=== PATIENT | female | born 1975 | race Caucasian/White ===

== ENCOUNTER 2017-12-03 09:28 | Emergency (ER) | payer OTHER, SELFPAY ==
[2017-12-03 09:33] VITALS: BP 127/95; PULSE 82; RESP 18; TEMP 36.7; O2SAT 97; BMI 30.9
--- NOTE | 2017-12-03 09:53 | XR_ITS ---
XR knee RT 3V Ordering Physician: Valerie Garduno MD Patient Age: 42 years: Female HISTORY: ITS.REASON: FELL AND HIT KNEE right knee pain. Injury TECHNIQUE: 3 views right knee COMPARISON : None available FINDINGS No fracture nor dislocation. Osseous structures well mineralized and intact.. Upper normal fluid suprapatella bursa pain. Patellofemoral relationships appear normal.. The joint spaces well-maintained at medial and lateral compartment. Only question minor , soft tissue edema overlying patella & the patellar tendon. Correlation required IMPRESSION: . No fracture. Right knee intact.
--- NOTE | 2017-12-03 10:03 | HMH.EDGENADL ---
ED Disposition Clinical Impression: Upper respiratory infection Qualifiers: URI type: unspecified URI Qualified Code(s): J06.9 - Acute upper respiratory infection, unspecified Knee pain, right Qualifiers: Chronicity: acute Qualified Code(s): M25.561 - Pain in right knee Disposition: Home, Self-Care Condition on Discharge: Good Instructions: Common Cold Additional Instructions: Aleve over the counter as needed for knee pain, see Betsy next week for follow up; recommend [id number] sterile saline nasal spray as needed. Referrals: Feroz Beckwith MD [Primary Care Provider] - Time of Disposition: :23 - Critical Care Critical Care Time: No Attestation: On , the high probability of a clinically significant, sudden or life threatening deterioration of the following system(s) required my full and direct attention, intervention and personal management. The time I documented below is in addition to time spent performing reported procedures but includes the following listed in this critical care notation. Medical Decision Making - Medical Records Medical records reviewed: Yes: I reviewed the patient's medical records. Vital Signs: 12/03/17 09:33 Temperature 98.0 F Temperature Source Oral Pulse Rate [Apical] 82 Respiratory Rate 18 Blood Pressure [Right Arm] 127/95 Blood Pressure Mean [Right Arm] 105 Blood Pressure Source [Right Arm] Automatic Cuff Blood Pressure Position [Right Arm] Sitting 02 Sat by Pulse Oximetry 97 Oxygen Delivery Method Room Air Orders (Tests/Meds): ORDERS Category Date Time Status Knee XR right 3 views [XR knee RT 3V] Stat Exams 12/03/17 09:53 Ordered - Radiology Data #1 Image(s): Knee Image Reviewed: Yes I reviewed the patient's radiology image Preliminary Findings: Normal/NAD, No Fracture Seen (neg acute) - Marc Inquiry Pt receiving controlled substance: No General Adult HPI - General Chief complaint: Upper Respiratory Infection Stated complaint: AO [id number] R Knee Pain,sinus Time Seen by Provider: 12/03/17 09:55 Mode of Arrival: Ambulatory Limitations: No Limitations Description of Symptoms (Recalled from ER Triage Doc. by RN): PT C/O HEAD CONGESTION,COUGH,SNEEZING,HEAD ACHE, DIZZINESS. PT ALSO STATES SHE FELL A COUPLE WEEKS AGO AND HIT HER RIGHT KNEE. - History of Present Illness HPI narrative: Patient presents with 2 complaints. She states that she fell on her porch on November 14, 2017 with negative LOC. She had pain in the right knee since that time. She has not received any prior evaluations from a physician. He has no numbness or swelling. Last took ibuprofen last night for this problem. Her second problem is that she has been congested for 2 days with no fever. She has been taking Claritin [id number] for 2 days. He has a very mild cough, and is a chronic smoker with chronic cough no vomiting or diarrhea. No flu symptoms. - Related Data Home Medications Medication Instructions Recorded Confirmed No Known Home Medications [No 12/03/17 12/03/17 Known Home Medications] Allergies Allergy/AdvReac Type Severity Reaction Status Date / Time No Known Allergies Allergy Verified 12/03/17 09:44 [facility] History I have reviewed the patient's past medical history: Yes - *Social History Smoking Status: Current every day smoker Tobacco Type: cigarettes Alcohol Intake: never - Psychiatric History Expresses thoughts of harming self/others: None Suicide Plan Description: No Plan ROS Obtained: Yes All systems reviewed & no additional complaints Physical Exam - General General appearance: alert, in no apparent distress - Head Head exam: atraumatic, normocephalic, normal inspection - Eye Eye exam: Present: normal appearance, PERRL, EOMI - ENT ENT exam: Present: normal oropharynx, mucous membranes moist, TM's normal bilaterally, normal external ear exam, other (Very mild sinus congestion with very mild sinus
--- NOTE | 2017-12-03 10:13 | ED_ITS ---
ED Disposition Clinical Impression: Upper respiratory infection Qualifiers: URI type: unspecified URI Qualified Code(s): J06.9 - Acute upper respiratory infection, unspecified Knee pain, right Qualifiers: Chronicity: acute Qualified Code(s): M25.561 - Pain in right knee Disposition: Home, Self-Care Condition on Discharge: Good Instructions: Common Cold Additional Instructions: Aleve over the counter as needed for knee pain, see Betsy next week for follow up; recommend [id number] sterile saline nasal spray as needed. Referrals: Feroz Beckwith MD [Primary Care Provider] - Time of Disposition: :23 - Critical Care Critical Care Time: No Attestation: On , the high probability of a clinically significant, sudden or life threatening deterioration of the following system(s) required my full and direct attention, intervention and personal management. The time I documented below is in addition to time spent performing reported procedures but includes the following listed in this critical care notation. Medical Decision Making - Medical Records Medical records reviewed: Yes: I reviewed the patient's medical records. Vital Signs: 12/03/17 09:33 Temperature 98.0 F Temperature Source Oral Pulse Rate [Apical] 82 Respiratory Rate 18 Blood Pressure [Right Arm] 127/95 Blood Pressure Mean [Right Arm] 105 Blood Pressure Source [Right Arm] Automatic Cuff Blood Pressure Position [Right Arm] Sitting 02 Sat by Pulse Oximetry 97 Oxygen Delivery Method Room Air Orders (Tests/Meds): ORDERS Category Date Time Status Knee XR right 3 views [XR knee RT 3V] Stat Exams 12/03/17 09:53 Ordered - Radiology Data #1 Image(s): Knee Image Reviewed: Yes I reviewed the patient's radiology image Preliminary Findings: Normal/NAD, No Fracture Seen (neg acute) - Marc Inquiry Pt receiving controlled substance: No General Adult HPI - General Chief complaint: Upper Respiratory Infection Stated complaint: AO [id number] R Knee Pain,sinus Time Seen by Provider: 12/03/17 09:55 Mode of Arrival: Ambulatory Limitations: No Limitations Description of Symptoms (Recalled from ER Triage Doc. by RN): PT C/O HEAD CONGESTION,COUGH,SNEEZING,HEAD ACHE, DIZZINESS. PT ALSO STATES SHE FELL A COUPLE WEEKS AGO AND HIT HER RIGHT KNEE. - History of Present Illness HPI narrative: Patient presents with 2 complaints. She states that she fell on her porch on November 14, 2017 with negative LOC. She had pain in the right knee since that time. She has not received any prior evaluations from a physician. He has no numbness or swelling. Last took ibuprofen last night for this problem. Her second problem is that she has been congested for 2 days with no fever. She has been taking Claritin [id number] for 2 days. He has a very mild cough , and is a chronic smoker with chronic cough no vomiting or diarrhea. No flu symptoms. - Related Data Home Medications Medication Instructions Recorded Confirmed No Known Home Medications [No 12/03/17 12/03/17 Known Home Medications] Allergies Allergy/AdvReac Type Severity Reaction Status Date / Time No Known Allergies Allergy Verified 12/03/17 09:44 [facility] History I have reviewed the patient's past medical history: Yes - *Social History Smoking Status: Cu
[2017-12-03 10:29] VITALS: BP 127/95; PULSE 80; RESP 18; O2SAT 97
== END 2017-12-03 10:34 | disposition home or self-care (01) ==
PROVIDERS: Emergency Provider Emergency Medicine; PCP Emergency Medicine
DX: J06.9 Acute upper respiratory infection, unspecified (principal); M25.561 Pain in right knee; R05 Cough; R42 Dizziness and giddiness; W01.0XXA Fall on same level from slipping, tripping and stumbling without subsequent striking against object, initial encounter; Y92.019 Unspecified place in single-family (private) house as the place of occurrence of the external cause
CPT/HCPCS: 73562; 99283

== ENCOUNTER → 2018-02-05 15:24 | Outpatient (CLI) | payer OTHER, SELFPAY ==
[2018-02-05 18:24] LABS: Basophils # 0.1 K/mm3 (0-0.2); Basophils % 1.1 % (0.1-2.0); Eosinophils # 0.2 K/mm3 (0.0-0.4); Eosinophils % 3.1 % (0.1-12.0); Hematocrit 45.8 % (37.0-47.0); Hemoglobin 14.7 g/dL (12.2-16.2); Lymphocytes # 2.9 K/mm3 (0.7-4.5); Lymphocytes % 43.2 K/mm3 (10-50); Mean Corpuscular HGB Conc 32.2 g/dL (31.8-35.4); Mean Corpuscular Hemoglobin 29.9 pg (27.0-31.2); Mean Corpuscular Volume 92.9 fl (81-99); Mean Platelet Volume 8.5 fl (7.4-10.4); Monocytes # 0.3 K/mm3 (0.1-1.0); Neutrophils # 3.2 K/mm3 (1.8-7.8); Neutrophils % 47.6 % (37.0-80.0); Platelet Count 321 K/mm3 (142-424); Red Blood Count 4.93 M/mm3 (4.20-5.40); Red Cell Distribution Width 13.4 % (11.5-17.5); White Blood Count 6.7 K/mm3 (4.8-10.8)
[2018-02-05 19:53] LABS: Hemoglobin A1C 5.5 % (0.0-7.0)
[2018-02-05 20:15] LABS: Alanine Aminotransferase 63 U/L (12-78); Albumin Level 3.9 gm/dL (3.4-5.0); Alkaline Phosphatase 94 U/L (46-116); Amylase 55 U/L (25-125); Anion Gap 12.4 mEq/L (5-15); Aspartate Amino Transferase 34 U/L (15-37); Bilirubin,Total 0.2 mg/dL (0.2-1.0); Blood Urea Nitrogen 8 mg/dL (7-18); Calcium 8.6 mg/dL (8.5-10.1); Carbon Dioxide 28 mmol/L (21.0-32.0); Chloride 106 mmol/L (98-107); Cholesterol 179 mg/dL (140-200); Estimated Glomerular Filt Rate 109 ml/min (>60); Free T4 (Free Thyroxine) 1.07 ng/dl (0.76-1.46); GFR (African American) 132 ML/MIN (>60); Globulin 3.9 gm/dl (1.3-3.2); Glucose 87 mg/dL (74-106); HDL Cholesterol 36 mg/dL (29-89); LDL Cholesterol 108 mg/dL (0-130); Potassium 4.4 mmoL/L (3.5-5.1); Sodium 142 mmol/L (136-145); Thyroid Stimulating Hormone 1.79 uIU/ml (0.358-3.740); Total Protein,Serum 7.8 gm/dL (6.4-8.2); Triglycerides 173 mg/dL (30-200); VLDL Cholesterol 35 mg/dL (0-40)
[2018-02-05 22:56] LABS: Lipase 88 u/L (73-393)
[2018-02-07 09:24] LABS: Hep A Ab, IgM Negative (Negative); Hepatitis B Core Antibody IgM Negative (Negative); Hepatitis B Surface Antigen Negative (Negative)
[2018-02-07 18:27] LABS: FSH 22.7 mIU/mL (.); Vitamin D 25 Hydroxy 22.5 ng/mL (30.0-100.0)
[2018-02-07 18:28] LABS: Hepatitis C Antibody >11.0 s/co ratio (0.0-0.9)
[2018-02-10 06:23] LABS: Estrogen 290 pg/mL (.)
== END ==
PROVIDERS: Visit Provider Nurse Practitioner Family
DX: R53.83 Other fatigue (principal); R74.8 Abnormal levels of other serum enzymes
CPT/HCPCS: 80053; 80061; 80074; 82150; 82652; 82672; 83001; 83002; 83036; 83690; 84439; 84443; 85025

== ENCOUNTER 2019-05-07 01:17 | Emergency (ER) | payer MEDICAID, SELFPAY ==
[2019-05-07 01:21] VITALS: BP 160/87; PULSE 98; RESP 15; TEMP 37.2; O2SAT 98
--- NOTE | 2019-05-07 01:41 | HMH.EDMCLR ---
ED Disposition Clinical Impression: Medical clearance for incarceration Disposition: Home, Self-Care Condition on Discharge: Fair Instructions: DI for Drug or Alcohol Withdrawal Additional Instructions: see pcp for follow up Referrals: Feroz Beckwith MD [Primary Care Provider] - - Critical Care Critical Care Time: No Attestation: On 05/07/19, the high probability of a clinically significant, sudden or life threatening deterioration of the following system(s) required my full and direct attention, intervention and personal management. The time I documented below is in addition to time spent performing reported procedures but includes the following listed in this critical care notation. Medical Decision Making - Medical Records Medical records reviewed: Yes: I reviewed the patient's medical records. - Marc Inquiry Pt receiving controlled substance: No Vital Signs: 05/07/19 01:21 Temperature 98.9 F Temperature Source Oral Pulse Rate [Right Brachial] 98 H Respiratory Rate 15 Blood Pressure [Right Arm] 160/87 H Blood Pressure Mean [Right Arm] 111 02 Sat by Pulse Oximetry 98 Oxygen Delivery Method Room Air Medical Clearance HPI - General Chief complaint: Medical Clearance Stated complaint: Medical Clearance Time Seen by Provider: 05/07/19 01:20 Mode of Arrival: Ambulatory Source of Information: Patient, Medical Record Description of Symptoms (Recalled from ER Triage Doc. by RN): PT BROUGHT IN FOR MEDICAL CLEARANCE BY [employer]PERATOR'S OFFICE. REPORTS SHE HAS TAKEN METH AND HEROIN TODAY AT SOME POINT. PT PARANOID RIGHT NOW. HAS NO COMPLAINTS AT THIS TIME - History of Present Illness HPI Narrative: pt denied any c/o - no delusions and ox3 - upset about things complaint: medical clearance requested Onset (ago): hour(s) Reason for Medical Clearance: medical condition Place: home Alleged Intoxication: No Traumatic Symptoms: denies traumatic injury Associated Symptoms: denies other symptoms Home medications: Home Medications Medication Instructions Recorded Confirmed buPROPion HCl [Wellbutrin SR 150mg 300 mg PO DAILY 05/07/19 05/07/19 Tablet] Allergies/Adverse reactions: Allergies Allergy/AdvReac Type Severity Reaction Status Date / Time No Known Allergies Allergy Verified 05/07/19 01:30 [facility] History - Hepatitis A Screen Drug use history?: Yes High risk sexual behaviors?: No History of sexually transmitted infection?: No Currently employed?: No Childcare worker?: No Do you have indoor plumbing?: No Do you have electricity?: Yes Attestation statement:: This patient has been screened for Hepatitis A risk factors. I have reviewed the patient's past medical history: Yes Medical History: Reports:: Anxiety, Depression Other Medical History: Reports: Other Comment: HYPOGLYCEMIA Other Surgeries: Yes: Other Amputation: No Fractures: No Comment: GALLBLADDER REMOVED - Social History Smoking Status: Current every day smoker Tobacco Type: cigarettes # Packs/Day (cigarettes): 1 Alcohol Intake: former Alcohol Intake Frequency:: 3 or more drinks per day Substance Use Type: heroin, IV drugs, methamphetamine Last Used Substance: unknown Occupational Status: unemployed Housing: house Household Members: family - Psychiatric History Expresses thoughts of harming self/others: None Suicide Plan Description: No Plan Pschychiatric History:: Reports:: Anxiety, Depression Family Hx:: No significant family history Comment: DAD HAD ALCOHOLISM ROS Obtained: Yes All systems reviewed & no additional complaints - Constitutional Constitutional: Denies fever(s) - Eyes Eyes: Denies change in vision - ENT Ears, Nose, Mouth, and Throat: Denies sore throat - Cardiovascular Cardiovascular: Denies chest pain - Respiratory Respiratory: No cough - Gastrointestinal Gastrointestingal: Denies: abdominal pain - Genitourinary Female Genitourinary: Denies hematuria - Musculoske
--- NOTE | 2019-05-07 01:44 | ED_ITS ---
ED Disposition Clinical Impression: Medical clearance for incarceration Disposition: Home, Self-Care Condition on Discharge: Fair Instructions: DI for Drug or Alcohol Withdrawal Additional Instructions: see pcp for follow up Referrals: Feroz Beckwith MD [Primary Care Provider] - - Critical Care Critical Care Time: No Attestation: On 05/07/19, the high probability of a clinically significant, sudden or life threatening deterioration of the following system(s) required my full and direct attention, intervention and personal management. The time I documented below is in addition to time spent performing reported procedures but includes the following listed in this critical care notation. Medical Decision Making - Medical Records Medical records reviewed: Yes: I reviewed the patient's medical records. - Marc Inquiry Pt receiving controlled substance: No Vital Signs: 05/07/19 01:21 Temperature 98.9 F Temperature Source Oral Pulse Rate [Right Brachial] 98 H Respiratory Rate 15 Blood Pressure [Right Arm] 160/87 H Blood Pressure Mean [Right Arm] 111 02 Sat by Pulse Oximetry 98 Oxygen Delivery Method Room Air Medical Clearance HPI - General Chief complaint: Medical Clearance Stated complaint: Medical Clearance Time Seen by Provider: 05/07/19 01:20 Mode of Arrival: Ambulatory Source of Information: Patient, Medical Record Description of Symptoms (Recalled from ER Triage Doc. by RN): PT BROUGHT IN FOR MEDICAL CLEARANCE BY [employer] INSPECTOR'S OFFICE. REPORTS SHE HAS TAKEN METH AND HEROIN TODAY AT SOME POINT. PT PARANOID RIGHT NOW. HAS NO COMPLAINTS AT THIS TIME - History of Present Illness HPI Narrative: pt denied any c/o - no delusions and ox3 - upset about things complaint: medical clearance requested Onset (ago): hour(s) Reason for Medical Clearance: medical condition Place: home Alleged Intoxication: No Traumatic Symptoms: denies traumatic injury Associated Symptoms: denies other symptoms Home medications: Home Medications Medication Instructions Recorded Confirmed buPROPion HCl [Wellbutrin SR 150mg 300 mg PO DAILY 05/07/19 05/07/19 Tablet] Allergies/Adverse reactions: Allergies Allergy/AdvReac Type Severity Reaction Status Date / Time No Known Allergies Allergy Verified 05/07/19 01:[address] [facility] History - Hepatitis A Screen Drug use history?: Yes High risk sexual behaviors?: No History of sexually transmitted infection?: No Currently employed?: No Childcare worker?: No Do you have indoor plumbing?: No Do you have electricity?: Yes Attestation statement:: This patient has been screened for Hepatitis A risk factors. I have reviewed the patient's past medical history: Yes Medical History: Reports:: Anxiety, Depression Other Medical History: Reports: Other Comment: HYPOGLYCEMIA Other Surgeries: Yes: Other Amputation: No Fractures: No Comment: GALLBLADDER REMOVED - Social History Smoking Status: Current every day smoker Tobacco Type: cigarettes # Packs/Day (cigarettes): 1 Alcohol Intake: former Alcohol Intake Frequency:: 3 or more drinks per day Substance Use Type: heroin, IV drugs, methamphetamine Last Used Substance: unknown Occupational Status: unemployed Housing: house
[2019-05-07 01:47] VITALS: BP 120/88; PULSE 120; RESP 15; TEMP 36.7; O2SAT 96
== END 2019-05-07 01:48 ==
PROVIDERS: Emergency Provider Emergency Medicine; PCP Emergency Medicine
DX: F19.20 Other psychoactive substance dependence, uncomplicated (principal); F17.210 Nicotine dependence, cigarettes, uncomplicated; F41.8 Other specified anxiety disorders
CPT/HCPCS: 99282

== ENCOUNTER → 2021-04-18 14:08 | Outpatient (CLI) | payer MEDICAID, SELFPAY ==
[2021-04-18 14:27] LABS: Basophils # 0.1 K/mm3 (0-0.2); Basophils % 1.2 % (0.1-2.0); Eosinophils # 0.3 K/mm3 (0.0-0.4); Eosinophils % 3.1 % (0.1-12.0); Hematocrit 38.4 % (37.0-47.0); Hemoglobin 12.6 g/dL (12.2-16.2); Lymphocytes # 3.4 K/mm3 (0.7-4.5); Lymphocytes % 39.4 % (10-50); Mean Corpuscular HGB Conc 32.9 g/dL (31.8-35.4); Mean Corpuscular Hemoglobin 30.5 pg (27.0-31.2); Mean Corpuscular Volume 92.8 fl (81-99); Mean Platelet Volume 9.1 fl (7.4-10.4); Monocytes # 0.6 K/mm3 (0.1-1.0); Monocytes % 6.3 % (1.7-9.3); Neutrophils # 4.3 K/mm3 (1.8-7.8); Platelet Count 371 K/mm3 (142-424); Red Blood Count 4.13 M/mm3 (4.20-5.40); Red Cell Distribution Width 13.1 % (11.5-17.5); White Blood Count 8.7 K/mm3 (4.8-10.8)
[2021-04-18 14:41] LABS: Alanine Aminotransferase 14 U/L (12-78); Albumin Level 4.1 g/dl (3.5-5.0); Albumin/Globulin Ratio 1.5 (1.1-1.8); Alkaline Phosphatase 93 U/L (38-126); Anion Gap 11.3 mEq/L (5-15); Aspartate Amino Transferase 25 U/L (14-36); Bilirubin,Total 0.7 mg/dl (0.2-1.3); Blood Urea Nitrogen 10 mg/dl (7-17); Calcium 8.8 mg/dl (8.4-10.2); Carbon Dioxide 26 mmol/L (22.0-30.0); Chloride 106 mmol/L (98-107); Chol/HDL Ratio 4.8 (1-3.5); Cholesterol 195 mg/dl (140-200); Estimated Glomerular Filt Rate 108 ml/min (>60); GFR (African American) 130 ML/MIN (>60); Globulin 2.8 g/dL (1.3-3.2); Glucose 128 mg/dl (74-100); HDL Cholesterol 41 mg/dl (40-60); Potassium 4.3 mmoL/L (3.5-5.1); Sodium 139 mmol/L (136-145); Total Protein,Serum 6.9 g/dl (6.3-8.2); Triglycerides 167 mg/dl (30-150); VLDL Cholesterol 33 mg/dL (0-40)
[2021-04-18 14:52] LABS: Direct LDL Cholesterol 124.21 mg/dL (100-129)
[2021-04-18 14:58] LABS: 25-OH Vitamin D, Total 21.4 ng/mL (30-100); Free T4 (Free Thyroxine) 1.22 ng/dl (0.78-2.19)
[2021-04-18 15:11] LABS: Thyroid Stimulating Hormone 3.28 uIU/mL (0.465-4.68)
== END ==
PROVIDERS: Visit Provider Emergency Medicine
DX: E66.9 Obesity, unspecified (principal); E55.9 Vitamin D deficiency, unspecified; Z68.34 Body mass index [BMI] 34.0-34.9, adult; Z79.899 Other long term (current) drug therapy
CPT/HCPCS: 80053; 80061; 82306; 84439; 84443; 85025

== ENCOUNTER → 2021-04-26 17:35 | Outpatient (CLI) | payer MEDICAID, SELFPAY ==
--- NOTE | 2021-04-26 17:45 | XR_ITS ---
PROCEDURE INFORMATION: Exam: XR Right Wrist Exam date and time: 04/26/2021 5:45 PM Age: 46 years old Clinical indication: Wrist; Right; Patient HX: Pain, no injury. ; Additional info: Possible carpal tunnel, pain , no injury TECHNIQUE: Imaging protocol: XR Right wrist. Views: 3 or more views. Total images: 3 COMPARISON: No relevant prior studies available. FINDINGS: Bones/joints: No fractures. No blastic or lytic lesions. No gross erosive changes. Soft tissues: No periostitis or osteolysis. No gross soft tissue abnormalities. No radiopaque foreign bodies. Other findings: Carpal relationships are normal. Distal radioulnar alignment is normal. IMPRESSION: No acute findings.
--- NOTE | 2021-04-26 17:45 | XR_ITS ---
PROCEDURE INFORMATION: Exam: XR Right Hand Exam date and time: 04/26/2021 5:45 PM Age: 46 years old Clinical indication: Pain; Hand; Right; Additional info: Possible carpal tunnel TECHNIQUE: Imaging protocol: XR Right hand. Views: 3 or more views. Total images: 3 COMPARISON: No relevant prior studies available. FINDINGS: Bones/joints: Grid mildly limits bone detail. No fractures. No blastic or lytic lesions. No articular erosive changes. Soft tissues: No periostitis or osteolysis. No gross soft tissue abnormalities. No radiopaque foreign bodies. Other findings: Carpal relationships are normal. Distal radioulnar alignment is normal. IMPRESSION: No acute findings.
== END ==
PROVIDERS: PCP Nurse Practitioner Family; Visit Provider Nurse Practitioner Family
DX: M79.641 Pain in right hand (principal); M25.531 Pain in right wrist; R20.2 Paresthesia of skin
CPT/HCPCS: 73110; 73130

== ENCOUNTER → 2022-01-17 15:39 | Outpatient (CLI) | payer MEDICAID, SELFPAY ==
--- NOTE | 2022-01-17 15:47 | XR_ITS ---
FINAL REPORT CLINICAL HISTORY: PAIN OF THE LEFT SACROILIAC JOINT FINDINGS: SACROILIAC JOINTS Three views demonstrate no acute fracture or dislocation. The joint spaces appear normal. The visualized bony structures are well aligned. No soft tissue abnormality is seen. IMPRESSION: No acute process. Reviewed, Interpreted and Dictated by Mainor Gaston MD Transcribed by Margot Peterson Authenticated by Mainor Gaston MD on 01/17/2022 04:52:14 PM [facility]
== END ==
PROVIDERS: PCP Internal Medicine Adolescent Medicine; Visit Provider Nurse Practitioner Family
DX: M53.3 Sacrococcygeal disorders, not elsewhere classified (principal)
CPT/HCPCS: 72202

== ENCOUNTER 2024-01-20 14:13 | Outpatient (CLI) | payer MEDICAID, SELFPAY ==
--- NOTE | 2024-01-20 14:17 | XR_ITS ---
FINAL REPORT CLINICAL HISTORY: rt knee pain Patient states she had fluid drawn off her right knee. COMPARISON: 12/03/2017 FINDINGS: AP, lateral and oblique views of the right knee were obtained. There is no prior exam for comparison. There is no acute osseous abnormality of the right knee. There is mild degenerative joint disease. No acute soft tissue abnormality is identified. There is no joint effusion. IMPRESSION: Mild degenerative joint disease. Reviewed, Interpreted and Dictated by Cecy Meeks MD Transcribed by Margot Peterson Authenticated and [facility]
== END 2024-01-20 23:59 ==
LOC: RAD 14:14
PROVIDERS: PCP Nurse Practitioner Family; Visit Provider Orthopaedic Surgery
DX: M25.561 Pain in right knee (principal)
CPT/HCPCS: 73562

== ENCOUNTER 2024-03-07 20:00 | Emergency (ER) | payer MEDICAID, SELFPAY ==
[2024-03-07 21:00] VITALS: BP 130/79; PULSE 70; RESP 19; TEMP 36.7; O2SAT 96; BMI 42.9
--- NOTE | 2024-03-07 21:03 | ED_ITS ---
<Statement entered by Isaac Martel MD - 03/07/24 23:35> I was consulted by the KATIE, and we discussed the complexity of the problems being addressed. I approved the treatment and management plan for this patient's care in the emergency department, thus performing a substantive portion of the medical decision making. Isaac Martel MD Discharge Plan Disposition Patient Disposition: Home, Self-Care Condition: Good Prescriptions Prescriptions: New sulfamethoxazole-trimethoprim [Bactrim DS] 800-160 mg tablet 1 tab PO BID Qty: 20 0RF No Action cyclobenzaprine 10 mg tablet 10 mg PO clonidine HCl 0.1 mg tablet 0.1 mg PO ropinirole 0.5 mg tablet 0.5 mg PO docusate sodium 100 mg capsule PO bisacodyl 5 mg tablet,delayed release (DR/EC) 5 mg PO ondansetron 4 mg tablet,disintegrating 4 mg PO dicyclomine 10 mg capsule 10 mg PO hydroxyzine pamoate 25 mg capsule 25 mg PO melatonin 5 mg tablet 5 mg PO venlafaxine 75 mg capsule,extended release 24hr 75 mg PO bacitracin zinc 500 unit/gram ointment TOPICAL cholecalciferol (vitamin D3) 1,250 mcg (50,000 unit) capsule 1,250 mcg PO WEEKLY Qty: 5 2RF Referrals Follow up/Referrals: Benjamin Kirby MD [Staff Physician] - See instructions Elsi Madrid APRN [Primary Care Provider] - See instructions Activity Restrictions/Add. Instructions Additional Instructions/Restrictions: Change packing once a day. Please call in the morning make an appointment with general surgery. Please take Tylenol every 8 hours for the first 48 to keep your pain under control. Turn to the ER as needed for any signs of worsening infection or as needed Clinical Impressions Clinical Impression: Abscess of skin or subcutaneous tissue Qualifiers: Site of cutaneous abscess: other site Qualified Code(s): L02.818 - Cutaneous abscess of other sites Clinical Impression: (Ruled Out): Upper respiratory infection Instructions Patient Instructions: DI for Skin Abscess Discharge ED Provider: Isaac Martel General Adult HPI <VIRA Monte - Last Filed: 03/07/24 21:53> General Chief complaint: Skin/Abscess/Foreign Body Stated complaint: Sore on back Time Seen by Provider: 03/07/24 20:59 History of Present Illness HPI narrative: Patient presents with 3-day history of pain redness swelling in the area in the middle of her back. She denies chest pain fever chills hemoptysis hematochezia melena nausea vomit diarrhea. Related Data Home Medications Medication Instructions Recorded Confirmed bacitracin zinc 500 unit/gram topical 04/18/21 01/20/24 topical ointment bisacodyl 5 mg tablet,delayed 5 mg PO 04/18/21 01/20/24 release clonidine HCl 0.1 mg tablet 0.1 mg PO 04/18/21 01/20/24 cyclobenzaprine 10 mg tablet 10 mg PO 04/18/21 01/20/24 dicyclomine 10 mg capsule 10 mg PO 04/18/21 01/20/24 docusate sodium 100 mg capsule mg PO 04/18/21 01/20/24 hydroxyzine pamoate 25 mg capsule 25 mg PO 04/18/21 01/20/24 melatonin 5 mg tablet 5 mg PO 04/18/21 01/20/24 ondansetron 4 mg disintegrating 4 mg PO 04/18/21 01/20/24 tablet ropinirole 0.5 mg tablet 0.5 mg PO 04/18/21 01/20/24 venlafaxine 75 mg capsule,extended 75 mg PO 04/18/21 01/20/24 release 24 hr Previous Rx's Medication Instructions Recorded cholecalciferol (vitamin D3) 1,250 1,250 mcg PO WEEKLY #5 caps 04/24/21 mcg (50,000 unit) capsule sulfamethoxazole 800 1 tab PO BID #20 tabs 03/07/24 mg-trimethoprim 160 mg tablet (Bactrim DS) Allergies Allergy/AdvReac Type Severity Reaction Status Date / Time No Known Allergies Allergy Verified 01/20/24 14:34 [facility], [facility] <VIRA Monte - Last Filed: 03/07/24 21:53> [facility], [facility] Disclaimer: The information contained in this section may have been updated after the patient was seen, as this information can be updated by other users. Social History Smoking Status: Unknown if ever smoked alcohol intake: former substance use type: former substance user, heroin, IV drugs and methamphetamine current occupational status: unemployed Travel in the last 8 weeks: None household members: family housing: house <VIRA Monte - Last Filed: 03/07/24 21:53> ROS Obtained: Yes Systems reviewed as appropriate & no additional complaints except as documented Physical Exam <VIRA Monte - Last Filed: 03/07/24 21:53> General General appearance: alert and in no apparent distress Respiratory Respiratory exam: Present normal lung sounds bilaterally Cardiovascular Cardiovascular exam: Present regular rate and normal rhythm Neurological Exam Neurological exam: Present alert and oriented X3 Other Other exam information: Patient has a 3 cm area of induration with small area of pointing almost midline, mid back that has a fluctuant center portion. Medical Decision Making <VIRA Monte - Last Filed: 03/07/24 21:53> Medical Records Medical records reviewed: Yes I reviewed the patient's medical records. Marc Inquiry Pt receiving controlled substance: No Vital Signs: 03/07/24 21:00 03/07/24 22:03 Temperature 98.0 F 97.9 F Temperature Source Oral Oral Pulse Rate 77 Pulse Rate [Right Brachial] 70 Respiratory Rate 19 16 Blood Pressure 113/82 Blood Pressure [Right Arm] 130/79 Blood Pressure Mean [Right Arm] 96 Blood Pressure Source [Right Arm] Automatic Cuff Blood Pressure Position [Right Arm] Sitting 02 Sat by Pulse Oximetry 96 Oxygen Delivery Method Room Air Room Air Orders (Tests/Meds): ED MEDICATIONS Discontinued Medications Generic Name Dose Route Start Last Admin Trade Name Freq PRN Reason Stop Dose Admin Lidocaine HCl 10 ml 03/07/24 21:15 03/07/24 21:45 Lidocaine 1% 10ml Mdv SQ 03/07/24 21:16 10 ml ONCE ONE Administration Trimethoprim/Sulfamethoxazole 1 each 03/07/24 21:39 03/07/24 21:45 Sulfa/Trimethoprim 1 Tablet PO 03/07/24 21:40 1 each ONCE ONE Administration Medical Decision Narrative: In summary patient is a 48-year-old female who presents to the emergency department for evaluation of an abscess. Patient is hemodynamically stable afebrile on arrival upon arrival. Physical exam is remarkable for approximately 3 cm area of induration with a central area of fluctuance and [id number] The midline of the thoracic portion of the spine, located underneath her bra strap area. Differential diagnosis includes deeper fascial abscess versus deep space abscess. Upon repeat evaluation patient reports significant improvement in her pain after I&D. Given this patient given a dose of Bactrim here in the ER and prescription sent to her pharmacy. Patient will be appropriate for discharge with follow-up with general surgery. <Isaac Martel MD - Last Filed: 03/07/24 23:35> Vital Signs: 03/07/24 21:00 03/07/24 22:03 Temperature 98.0 F 97.9 F Temperature Source Oral Oral Pulse Rate 77 Pulse Rate [Right Brachial] 70 Respiratory Rate 19 16 Blood Pressure 113/82 Blood Pressure [Right Arm] 130/79 Blood Pressure Mean [Right Arm] 96 Blood Pressure Source [Right Arm] Automatic Cuff Blood Pressure Position [Right Arm] Sitting 02 Sat by Pulse Oximetry 96 Oxygen Delivery Method Room Air Room Air Orders (Tests/Meds): ED MEDICATIONS Discontinued Medications Generic Name Dose Route Start Last Admin Trade Name Freq PRN Reason Stop Dose Admin Lidocaine HCl 10 ml 03/07/24 21:15 03/07/24 21:45 Lidocaine 1% 10ml Mdv SQ 03/07/24 21:16 10 ml ONCE ONE Administration Trimethoprim/Sulfamethoxazole 1 each 03/07/24 21:39 03/07/24 21:45 Sulfa/Trimethoprim 1 Tablet PO 03/07/24 21:40 1 each ONCE ONE Administration Medical Decision Narrative: In summary patient is a 48-year-old female who presents to the emergency department for evaluation of an abscess. Patient is hemodynamically stable afebrile on arrival upon arrival. Physical exam is remarkable for approximately 3 cm area of induration with a central area of fluctuance and pointing. The midline of the thoracic portion of the spine, located underneath her bra strap area. Differential diagnosis includes deeper fascial abscess versus deep space abscess. Upon repeat evaluation patient reports significant improvement in her pain after I&D. Given this patient given a dose of Bactrim here in the ER and prescription sent to her pharmacy. Patient will be appropriate for discharge with follow-up with general surgery. Procedures <VIRA Monte - Last Filed: 03/07/24 21:53> Abscess I/D Site: back Sedation/analgesia: none Local Anesthetic: lidocaine 1% Amount of anesthesia used (mL): 10 Technique: incised with #11 blade Amount of fluid expressed (mL): 5 Irrigation: No Packing used?: plain Critical Care <VIRA Monte - Last Filed: 03/07/24 21:53> Critical Care Time Critical Care Time: No
[2024-03-07] MEDS: SULFA/TRIMETHOPRIM 1 TABLET 1 EACH PO (21:45)
[2024-03-07] MEDS: LIDOCAINE 1% 10ML MDV 10 ML SQ (21:45)
[2024-03-07 22:03] VITALS: BP 113/82; PULSE 77; RESP 16; TEMP 36.6; O2SAT 97
== END 2024-03-07 22:04 | disposition home or self-care (01) ==
PROVIDERS: Emergency Provider Emergency Medicine; PCP Nurse Practitioner Family
DX: L02.232 Carbuncle of back [any part, except buttock and flank] (principal)
CPT/HCPCS: 10060; 99283

== ENCOUNTER 2024-03-11 17:46 | Outpatient (CLI) | payer MEDICAID, SELFPAY ==
--- NOTE | 2024-03-11 17:46 | MR_ITS ---
PROCEDURE INFORMATION: Exam: MR Right Lower Extremity Joint Without Contrast, Knee Exam date and time: 03/11/2024 5:38 PM Age: 48 years old Clinical indication: Patient HX: Right knee pain TECHNIQUE: Imaging protocol: Magnetic resonance imaging of the right lower extremity joint without contrast. Exam focused on the knee. COMPARISON: CR XR KNEE RT 3V 01/20/2024 2:20 PM FINDINGS: Bones/joints: Moderate knee joint effusion. Mild lateral patellar tilt. Small areas of heterogeneous signal in the patellofemoral articular cartilage and subtle areas of superficial patellar articular cartilage fissuring. No full-thickness patellar articular cartilage defect. Mild articular cartilage thinning in the medial compartment. No acute fracture or malalignment. 5 mm subcortical cyst in the posterior tibial plateau with mild surrounding edema. Medial meniscus: Intrasubstance degenerative changes in the posterior horn of the medial meniscus with linear tear in the posterior horn extending to the superior surface of the meniscus. Severe degenerative changes in the body of the medial meniscus with free edge tear and partial displacement of a fragment of the medial meniscus into the medial gutter. Lateral meniscus: Unremarkable. No tear. Anterior cruciate ligament: Unremarkable. No tear. Posterior cruciate ligament: Unremarkable. No tear. Medial capsule and supporting structures: Mild heterogeneous signal in the MCL with thinning of distal MCL fibers and mild adjacent soft tissue edema. Lateral capsule and supporting structures: Unremarkable. No tear. Extensor mechanism of knee: Unremarkable. No tear. Soft tissues: Mild subcutaneous edema at the knee. Multiloculated 4.0 x 2.5 x 1.5 cm popliteal fossa cyst. IMPRESSION: 1. Intrasubstance degenerative changes and tears of the posterior horn and body of the medial meniscus. 2. Osteoarthritis with articular cartilage thinning in the patellofemoral joint and medial compartment. Mild MCL strain. 3. Multiloculated 4.0 x 2.5 x 1.5 cm popliteal fossa cyst.
== END 2024-03-11 23:59 | disposition home or self-care (01) ==
LOC: RAD 17:46
PROVIDERS: PCP Nurse Practitioner Family; Visit Provider Orthopaedic Surgery
DX: M23.91 Unspecified internal derangement of right knee (principal)
CPT/HCPCS: 73721

== ENCOUNTER 2024-03-30 14:45 | Outpatient (CLI) | payer MEDICAID, SELFPAY ==
[2024-03-30 16:03] VITALS: BMI 50.1
== END 2024-03-30 23:59 | disposition home or self-care (01) ==
LOC: DIETICIAN 14:46
PROVIDERS: PCP Nurse Practitioner Family; Visit Provider Nurse Practitioner Family
DX: E11.9 Type 2 diabetes mellitus without complications (principal); Z71.3 Dietary counseling and surveillance
CPT/HCPCS: 97802

== ENCOUNTER 2024-09-09 09:42 | Outpatient (CLI) | payer MEDICAID, SELFPAY ==
[2024-09-09 10:03] LABS: Basophils # 0.1 K/mm3 (0-0.2); Basophils % 1.5 % (0.1-2.0); Eosinophils # 0.3 K/mm3 (0.0-0.4); Eosinophils % 3.3 % (0.1-12.0); Hematocrit 39.9 % (37.0-47.0); Hemoglobin 13.7 g/dL (12.2-16.2); Lymphocytes # 3.2 K/mm3 (0.7-4.5); Mean Corpuscular HGB Conc 34.4 g/dL (31.8-35.4); Mean Corpuscular Hemoglobin 31.3 pg (27.0-31.2); Mean Platelet Volume 7.6 fl (7.4-10.4); Monocytes # 0.3 K/mm3 (0.1-1.0); Monocytes % 3.6 % (1.7-9.3); Neutrophils # 5.2 K/mm3 (1.8-7.8); Neutrophils % 56.5 % (37.0-80.0); Platelet Count 320 K/mm3 (142-424); Red Blood Count 4.38 M/mm3 (4.20-5.40); Red Cell Distribution Width 13.2 % (11.5-17.5); White Blood Count 9.2 K/mm3 (4.8-10.8)
[2024-09-09 10:40] LABS: Anion Gap 3.9 mEq/L (5-15); Blood Urea Nitrogen 10 mg/dl (7-17); Calcium 8.9 mg/dl (8.4-10.2); Carbon Dioxide 31 mmol/L (22.0-30.0); Chloride 105 mmol/L (98-107); Estimated Glomerular Filt Rate 76 ml/min (>60); GFR (African American) 92 ML/MIN (>60); Glucose 106 mg/dl (74-100); Potassium 3.9 mmoL/L (3.5-5.1); Sodium 136 mmol/L (136-145)
== END 2024-09-09 23:59 | disposition home or self-care (01) ==
LOC: LAB 09:43
PROVIDERS: PCP Nurse Practitioner Family; Visit Provider Surgery
DX: D17.20 Benign lipomatous neoplasm of skin and subcutaneous tissue of unspecified limb (principal)
CPT/HCPCS: 36415; 80048; 85025

== ENCOUNTER 2024-09-27 09:31 | Day surgery (SDC) | payer MEDICAID, SELFPAY ==
[2024-09-17 14:59] VITALS: BMI 44.6
[2024-09-27] VITALS (8 sets, daily range): BP systolic 120–159; BP diastolic 70–103; PULSE 67–78; RESP 12–18; TEMP 36.3–36.4; O2SAT 94–100
--- NOTE | 2024-09-27 10:54 | EXP.ANES.CKL ---
[facility] Disclaimer: The information contained in this section may have been updated after the patient was seen, as this information can be updated by other users. Medical History (Updated 09/17/24 @ 14:53 by Dania Sabillon RN) COPD (chronic obstructive pulmonary disease) Menopause Seizure disorder History of gastroesophageal reflux (GERD) Diabetes mellitus, type 2 Allergies Hyperlipidemia Hypertension Surgical History (Updated 09/17/24 @ 14:53 by Dania Sabillon RN) History of cholecystectomy Family History (Updated 09/17/24 @ 14:53 by Dania Sabillon RN) Other Family history of diabetes mellitus type II Social History (Updated 09/17/24 @ 14:54 by Dania Sabillon RN) Smoking Status: Current every day smoker tobacco type: e-cigarettes alcohol intake: never substance use type: former substance user, heroin, IV drugs and methamphetamine current occupational status: employed Travel in the last 8 weeks: None household members: family housing: house caffeine: Yes [facility] Anesthesia Checklist Patient Identification Patient Identification: Arm Band, Family and Verbal (Name & ) Structural Data Admitted From: Home Planned Operative Procedure/s: Excision RIGHT Forearm laesion Consent for Planned Operative Procedure(s) Verified: Yes Verified Documents: Surgical Consent and History and Physical NPO Status Verified Time NPO: 20:00 Chart Verification Results Verified: CBC, BMP, ECG and Chest Xray Additional verifications Fingerstick Blood Glucose: 101 Patient : No Anesthesia Reactions: No Hx Blood Transfusions: No Blood Transfusion Reaction: No Cephalosporin Allergy: No Cardiovascular Assessment Heart Sounds: S1 & S2 Pulse Rhythm: Irregular Peripheral Edema: No Airway Assessment Mallampati Score:: Class II C-Spine Mobility Assessed: Yes (FROM) TMJ Mobility Assessed: Yes Dentition: Edentulous (Dentures out) Neurological Assessment Level of Consciousness: Awake, Alert, Appropriate and Follows Commands Hx Seizures: Yes Numbness or tingling in extremities: No Anesthesia Plan Anesthesia Risk discussed: Yes Anesthesia Plan: Verified ASA Class: III Anesthesia Type: General
[2024-09-27] MEDS: CEFAZOLIN SODIUM 2 GM in 0.9 % SODIUM CHLORIDE 100 ML IV (12:10)
[2024-09-27] MEDS: LIDOCAINE 1% 20ML MDV 20 ML (12:27)
[2024-09-27] MEDS: ROPIVACAINE 0.5% 30ML VIAL 150 MG (12:27)
--- NOTE | 2024-09-27 12:41 | P.OP_ITS ---
Date of procedure: 09/27/24 Pre-op Diagnosis:: Right forearm lipoma Post-op Diagnosis:: Same Procedure performed:: Excision right forearm lipoma, excision length 3 cm) with intermediate complexity closure Surgeon:: Benjamin Kirby MD SOLAR SYSTEM INSTALLER:: Vicente Bee Anesthesia: local and LMA Estimated blood loss (mL): 5 Operative findings:: Consistent with lobulated subcutaneous lipoma. There were branching intervening venous branches. Attempt was made to preserve these. Operative note:: Consent was obtained patient was taken the operating room. She was given preoperative intravenous antibiotics. In the operating room she was placed in a supine position. General anesthesia was induced via LMA. The area was prepped and draped in the standard surgical fashion. Lesion palpable boundaries were marked with a skin marker. Skin was then marked with skin marker for planned incision. Transverse 3 cm incision was made. Dissection was carried down through superficial subcutaneous tissues. There was overlying branching vein which was preserved. There were some deep intervening veins. Using blunt dissection with some use of Metzenbaum dissection lobulated lipomatous tissue was dissected free from surrounding normal subcutaneous tissue in somewhat of a piecemeal fashion. This was sent off as specimen. Wound was thoroughly irrigated. Hemostasis was achieved with limited use of electrocautery. Dermal tissues were closed with interrupted 3-0 Vicryl. Skin was closed with 4-0 Monocryl in a subcuticular fashion. Dermabond and clean dry sterile dressing was applied. Condition: stable Disposition: PACU Complications:: None immediately apparent
--- NOTE | 2024-09-27 12:42 | EXP.ANES.I ---
[facility] Anesthesia Record Part I Anesthesia Record I Intake, IV Amount: 1,000 Hydration: Adequate Estimated blood loss (mL): 0 Urine output (mL): 0 Blood Pressure: 134/91 SaO2: 100 Pulse Rate: 78 Airway Patency: Patent Respiratory Rate: 12 Temperature: 97.5 F Patient is:: Awake and Stable Stable to PACU at:: 12:40
[2024-09-28 08:13] LABS: POC Glucose,Bedside 101 (70-110)
[2024-09-29 10:26] VITALS: BP 120/72; PULSE 71; RESP 18; TEMP 36.3; O2SAT 94
--- NOTE | 2024-09-29 10:26 | P.PNANES_ITS ---
[facility] Anesthesia Record Part II Anesthesia Record Part II Discharge Time: 13:00 Destination: Surgical Day Care (OP Surgery) PACU nurse assessment reviewed?: Yes Patient Condition:: Good Anesthesia Complications:: None Swallowing reflex intact?: Yes Airway Patency: Patent Cyanosis?: No Blood Pressure: 120/72 SaO2: 94 Respiratory Rate: 18 Pulse Rate: 71 Temperature: 97.4 F Mental Status: Alert & Oriented Pain level:: 0 Nausea and/or vomitting:: None Intake, IV Amount: 0 Hydration: Adequate
== END 2024-09-27 13:45 | disposition home or self-care (01) ==
PROVIDERS: PCP Nurse Practitioner Family; Visit Provider Surgery
PROC: (CPT 11403; principal; 2024-09-27 11:00)
DX: D17.21 Benign lipomatous neoplasm of skin and subcutaneous tissue of right arm (principal)
CPT/HCPCS: 11403; 12032; 82962; 96374; J0690

== ENCOUNTER 2025-01-13 14:56 | Outpatient (CLI) | payer MEDICAID, SELFPAY ==
--- NOTE | 2025-01-13 15:10 | XR_ITS ---
FINAL REPORT CLINICAL HISTORY: right knee pain COMPARISON: None FINDINGS: AP, lateral and oblique views of the right knee were obtained. There is no prior exam for comparison. There is no acute osseous abnormality of the right knee. Mild degenerative joint disease is noted. The soft tissues are normal. There is no joint effusion. IMPRESSION: Mild degenerative joint disease, with no acute osseous abnormality of the right knee. Reviewed, Interpreted and Dictated by Cecy Meeks MD Transcribed by Amarilis Ferguson Authenticated and [facility]
== END 2025-01-13 23:59 | disposition home or self-care (01) ==
LOC: RAD 14:57
PROVIDERS: PCP Nurse Practitioner Family; Visit Provider Physician Assistant
DX: M17.11 Unilateral primary osteoarthritis, right knee (principal)
CPT/HCPCS: 73562

== ENCOUNTER 2025-02-25 10:44 | Outpatient (CLI) | payer MEDICAID, SELFPAY ==
[2025-02-25 11:24] LABS: Basophils # 0.1 K/mm3 (0-0.2); Basophils % 0.5 % (0.1-2.0); Eosinophils # 0.1 K/mm3 (0.0-0.4); Eosinophils % 0.7 % (0.1-12.0); Hematocrit 39.2 % (37.0-47.0); Lymphocytes # 2.6 K/mm3 (0.7-4.5); Lymphocytes % 13.4 % (10-50); Mean Corpuscular HGB Conc 33.2 g/dL (31.8-35.4); Mean Corpuscular Hemoglobin 29.6 pg (27.0-31.2); Mean Corpuscular Volume 89.3 fl (81-99); Mean Platelet Volume 10.1 fl (7.4-10.4); Monocytes # 0.6 K/mm3 (0.1-1.0); Monocytes % 3.3 % (1.7-9.3); Neutrophils # 15.7 K/mm3 (1.8-7.8); Neutrophils % 81.6 % (37.0-80.0); Platelet Count 298 K/mm3 (142-424); Red Blood Count 4.39 M/mm3 (4.20-5.40); Red Cell Distribution Width 12.4 % (11.5-17.5); White Blood Count 19.3 K/mm3 (4.8-10.8)
[2025-02-25 11:55] LABS: Creatinine,Urine Random 66 mg/dL (Not Estab.); Microalbumin < 6.000 mg/L (0-16.7)
[2025-02-25 12:04] LABS: Alanine Aminotransferase 17 U/L (12-78); Albumin Level 3.5 g/dl (3.5-5.0); Albumin/Globulin Ratio 1.1 (1.1-1.8); Alkaline Phosphatase 112 U/L (38-126); Anion Gap 10.4 mEq/L (5-15); Aspartate Amino Transferase 17 U/L (14-36); Bilirubin,Total 0.8 mg/dl (0.2-1.3); Blood Urea Nitrogen 12 mg/dl (7-17); Calcium 8.8 mg/dl (8.4-10.2); Carbon Dioxide 25 mmol/L (22.0-30.0); Chloride 104 mmol/L (98-107); Chol/HDL Ratio 3.2 (1-3.5); Cholesterol 130 mg/dl (140-200); Estimated Glomerular Filt Rate 89 ml/min (>60); GFR (African American) 107 ML/MIN (>60); Globulin 3.2 g/dL (1.3-3.2); Glucose 166 mg/dl (74-100); HDL Cholesterol 41 mg/dl (40-60); Potassium 3.4 mmoL/L (3.5-5.1); Sodium 136 mmol/L (136-145); Total Protein,Serum 6.7 g/dl (6.3-8.2); Triglycerides 91 mg/dl (30-150); VLDL Cholesterol 18 mg/dL (0-40)
[2025-02-25 12:08] LABS: MANUAL DIFFERENTIAL MANUAL DIFFERENTIAL (MANUAL DIFF)
[2025-02-25 12:15] LABS: Direct LDL Cholesterol 62.37 mg/dL (100-129)
[2025-02-25 12:19] LABS: Hemoglobin A1C 5.6 % (4.0-6.0)
[2025-02-25 12:21] LABS: 25-OH Vitamin D, Total 34.9 ng/mL (30-100)
[2025-02-25 14:22] LABS: Lymphocytes % 12 % (10-50); Monocytes % 2 % (2-9); Neutrophils % 86 % (42-76); Total Cells Counted 100
[2025-02-25 14:23] LABS: Platelet Estimate Normal; RBC Morphology Normal
== END 2025-02-25 23:59 | disposition home or self-care (01) ==
LOC: LAB 10:45
PROVIDERS: PCP Nurse Practitioner Family; Visit Provider Nurse Practitioner Family
DX: I10 Essential (primary) hypertension (principal); E11.9 Type 2 diabetes mellitus without complications; E55.9 Vitamin D deficiency, unspecified; I88.9 Nonspecific lymphadenitis, unspecified; J02.9 Acute pharyngitis, unspecified; Z72.0 Tobacco use
CPT/HCPCS: 36415; 80053; 80061; 82043; 82306; 82570; 83036; 85007; 85025; 85027; 87070; 87077

== ENCOUNTER 2025-03-21 06:14 | Emergency (ER) | payer MEDICAID, SELFPAY ==
[2025-03-21 06:24] VITALS: BP 132/90; PULSE 88; RESP 20; TEMP 36.8; O2SAT 99; BMI 47.5
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
--- NOTE | 2025-03-21 06:26 | CT_ITS ---
FINAL REPORT TECHNIQUE: thin section axial CT with and without IV contrast supplemented with multiplanar 3-D reconstruction of the head. This study was performed with techniques to keep radiation doses as low as reasonably achievable, (ALARA)individualized dose reduction techniques using automated exposure control or adjustment of mA and/or kV according to the patient's size were employed. CLINICAL HISTORY: trauma, critical injury suspected FINDINGS: HEAD CT: The ventricles are normal in size. There is no evidence of hemorrhage. No masses are identified. No extra-axial fluid is seen. The sinuses are normal. CTA: The cranial circulation is unremarkable. There is no significant stenosis, aneurysm or occlusion. IMPRESSION: No acute process. Reviewed, Interpreted and Dictated by Mainor Gaston MD Transcribed by Argenis Butler Authenticated and . [facility]
--- NOTE | 2025-03-21 06:26 | CT_ITS ---
FINAL REPORT TECHNIQUE: Axial CT images were performed through the head. Coronal reformatted images were submitted. This study was performed with techniques to keep radiation doses as low as reasonably achievable (ALARA). Individualized dose reduction techniques using automated exposure control or adjustment of mA and/or kV according to the patient's size were employed. CLINICAL HISTORY: trauma, critical injury suspected FINDINGS: The ventricles are normal in size. There is no evidence of hemorrhage. There is no mass or edema identified. There is no abnormal extra-axial fluid seen. The sinuses are well aerated. IMPRESSION: No acute intracranial process. Reviewed, Interpreted and Dictated by Mainor Gaston MD Transcribed by Argenis Butler Authenticated and [facility]
--- NOTE | 2025-03-21 06:26 | CT_ITS ---
FINAL REPORT TECHNIQUE: Axial images were obtained of the lumbar spine by computed tomography. Coronal and sagittal reconstruction process performed. This study was performed with techniques to keep radiation doses as low as reasonably achievable (ALARA). Individualized dose reduction techniques using automated exposure control or adjustment of mA and/or kV according to the patient''s size were employed. CLINICAL HISTORY: trauma, critical injury suspected FINDINGS: There is no acute fracture. Lumbar vertebrae show normal height. There is no malalignment. The facets are properly aligned. There is a mild diffuse disc bulge, moderate facet hypertrophy, and mild bilateral neuroforaminal narrowing at L4-5 and L5-S1. IMPRESSION: No acute bony abnormality. Reviewed, Interpreted and Dictated by Mainor Gaston MD Transcribed by Argenis Butler Authenticated and . [facility]
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
[2025-03-21 06:33] VITALS: BP 132/90; PULSE 78; RESP 16; TEMP 36.6; O2SAT 97
[2025-03-21 06:35] LABS: Basophils # 0.1 K/mm3 (0-0.2); Basophils % 1.2 % (0.1-2.0); Eosinophils # 0.3 Kmm3 (0.0-0.4); Eosinophils % 2.7 % (0.1-12.0); Hematocrit 40.1 % (37.0-47.0); Hemoglobin 13.6 g/dL (12.2-16.2); Lymphocytes # 4.7 K/mm3 (0.7-4.5); Lymphocytes % 39.9 % (10-50); Mean Corpuscular HGB Conc 33.9 g/dL (31.8-35.4); Mean Corpuscular Hemoglobin 30.7 pg (27.0-31.2); Mean Corpuscular Volume 90.5 fl (81-99); Mean Platelet Volume 9.9 fl (7.4-10.4); Monocytes # 0.7 K/mm3 (0.1-1.0); Monocytes % 5.9 % (1.7-9.3); Neutrophils # 5.9 K/mm3 (1.8-7.8); Nucleated Red Blood Cells # 0 10^3/uL; Nucleated Red Blood Cells % 0 %; Platelet Count 369 K/mm3 (142-424); Red Blood Count 4.43 M/mm3 (4.20-5.40); Red Cell Distribution Width 12.7 % (11.5-17.5); White Blood Count 11.8 K/mm3 (4.8-10.8)
[2025-03-21 06:38] LABS: Albumin Level 4.3 g/dl (3.5-5.0); Chloride 105 mmol/L (98-107); Potassium 3.9 mmoL/L (3.5-5.1); Sodium 142 mmol/L (136-145)
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
[2025-03-21 06:41] LABS: Alanine Aminotransferase 19 U/L (12-78); Albumin/Globulin Ratio 1.2 (1.1-1.8); Alkaline Phosphatase 107 U/L (38-126); Anion Gap 13.9 mEq/L (5-15); Aspartate Amino Transferase 21 U/L (14-36); Bilirubin,Total 0.5 mg/dl (0.2-1.3); Blood Urea Nitrogen 11 mg/dl (7-17); Calcium 8.7 mg/dl (8.4-10.2); Carbon Dioxide 27 mmol/L (22.0-30.0); Creatinine Clearance Estimated 70 mL/min (50-200); Estimated Glomerular Filt Rate 76 ml/min (>60); GFR (African American) 92 ML/MIN (>60); Globulin 3.5 g/dL (1.3-3.2); Glucose 128 mg/dl (74-100); Total Protein,Serum 7.8 g/dl (6.3-8.2)
[2025-03-21 06:42] LABS: Activated Partial Thrombo Time 29.3 seconds (22.8-30.6); INR 0.96 (0.9-1.1); Prothrombin Time 10.8 seconds (10.1-12.5)
[2025-03-21] MEDS: ACETAMINOPHEN 500MG TAB 1000 MG PO (06:50)
[2025-03-21] MEDS: 0.9 % SODIUM CHLORIDE 50 ML VIAL 80 ML IV (07:13)
[2025-03-21] MEDS: SODIUM CHLORIDE 0.9% 10ML SYR (RAD ONLY) 10 ML IV (07:13)
[2025-03-21] MEDS: IOPAMIDOL-370 (76%);100ML BOTTLE 160 ML IV (07:13)
[2025-03-21 07:31] VITALS: BP 126/77; PULSE 73; RESP 20; O2SAT 98
[2025-03-21 08:41] VITALS: BP 124/74; PULSE 84; RESP 20; TEMP 37; O2SAT 97
== END 2025-03-21 08:46 | disposition home or self-care (01) ==
PROVIDERS: Emergency Medicine; Emergency Provider Emergency Medicine; PCP Nurse Practitioner Family
DX: M79.605 Pain in left leg (principal); M79.661 Pain in right lower leg; S80.10XA Contusion of unspecified lower leg, initial encounter; S80.212A Abrasion, left knee, initial encounter; V03.10XA Pedestrian on foot injured in collision with car, pick-up truck or van in traffic accident, initial encounter
CPT/HCPCS: 70450; 70496; 70498; 71275; 72125; 72128; 72131; 73552; 73562; 73590; 74174; 80053; 85025; 85610; 85730; 99291; Q9967

== ENCOUNTER 2025-04-13 16:15 | Outpatient (CLI) | payer MEDICAID, SELFPAY ==
[2025-04-13 17:00] LABS: Basophils # 0.1 K/mm3 (0-0.2); Eosinophils # 0.3 Kmm3 (0.0-0.4); Eosinophils % 2.7 % (0.1-12.0); Hematocrit 35.3 % (37.0-47.0); Hemoglobin 11.8 g/dL (12.2-16.2); Immature Granulocytes # 0.04 10^3uL; Immature Granulocytes % 0.4 %; Lymphocytes # 4.1 K/mm3 (0.7-4.5); Lymphocytes % 41.9 % (10-50); Mean Corpuscular HGB Conc 33.4 g/dL (31.8-35.4); Mean Corpuscular Hemoglobin 30.5 pg (27.0-31.2); Mean Corpuscular Volume 91.2 fl (81-99); Monocytes # 0.5 K/mm3 (0.1-1.0); Neutrophils # 4.8 K/mm3 (1.8-7.8); Nucleated Red Blood Cells # 0 10^3/uL; Nucleated Red Blood Cells % 0 %; Platelet Count 316 K/mm3 (142-424); Red Blood Count 3.87 M/mm3 (4.20-5.40); Red Cell Distribution Width 12.7 % (11.5-17.5); Red Cell Distribution Width-SD 41.4 fL; White Blood Count 9.8 K/mm3 (4.8-10.8)
[2025-04-13 19:12] LABS: Chloride 109 mmol/L (98-107); Sodium 140 mmol/L (136-145)
[2025-04-13 19:15] LABS: Blood Urea Nitrogen 13 mg/dl (7-17); Calcium 8.6 mg/dl (8.4-10.2); Carbon Dioxide 27 mmol/L (22.0-30.0); Estimated Glomerular Filt Rate 89 ml/min (>60); GFR (African American) 107 ML/MIN (>60); Glucose 132 mg/dl (74-100)
[2025-04-13 19:47] LABS: Thyroid Stimulating Hormone 1.93 uIU/mL (0.465-4.68)
== END 2025-04-13 23:59 | disposition home or self-care (01) ==
LOC: LAB 16:16
PROVIDERS: PCP Nurse Practitioner Family; Visit Provider Nurse Practitioner Family
DX: D72.829 Elevated white blood cell count, unspecified (principal); R63.5 Abnormal weight gain; E78.5 Hyperlipidemia, unspecified; Z68.41 Body mass index [BMI] 40.0-44.9, adult
CPT/HCPCS: 36415; 80048; 84443; 85025

== ENCOUNTER 2025-11-11 13:35 | Outpatient (CLI) | payer MEDICAID, SELFPAY ==
--- NOTE | 2025-11-11 13:37 | MM_ITS ---
PROCEDURE INFORMATION: Exam: MG Bilateral Screening 3D Mammography Exam date and time: 11/11/2025 1:54 PM Age: 50 years old Clinical indication: Screening examination TECHNIQUE: Imaging protocol: Bilateral Screening tomosynthesis and 2D mammography including computer-aided detection (CAD) when performed. COMPARISON: 1. MG DIAGNOSTIC MAMMO BILAT 12/04/2023 10:54 AM 2. MG DIGITAL SCREEN MAMMO BILAT 11/04/2023 10:01 AM FINDINGS: MAMMOGRAPHY: Breast composition: There are scattered areas of fibroglandular density. Mass: None. Architectural distortion: None. Calcifications: No suspicious calcifications. Asymmetric density: None. Skin thickening: None. Axillary adenopathy: None. IMPRESSION: No mammographic evidence of malignancy. Annual screening is recommended unless otherwise clinically indicated. ASSESSMENT: BI-RADS Category 1: Negative.
--- OUTSIDE RECORDS SUMMARY | 2025-11-11 13:38 | XMS_ITS | Clinical Summary ---
Author Organization [facility] Address [address] [id number] Care Team Providers Care Security Assessor Name Role Phone Feroz Beckwith MD Primary Care Provider [phone] Social History Tobacco Use Types Packs/Day Years Used Date Smoking Tobacco: Never Assessed Comments Unknown Sex and Gender Information Value Date Recorded Sex Assigned at Not on file Legal Sex Female 3:33 PM EST Gender Identity Not on file Sexual Orientation Not on file Plan of Treatment Health Maintenance Due Date Last Done Comments Breast Cancer Screening 1974 CT Colonography 1974 Colonoscopy 1974 Colorectal Cancer Screening 1974 FIT-DNA 1974 FIT 1974 FOBT 1974 Sigmoidoscopy 1974 Hepatitis B (HepB) Vaccine ( 1 of 3 - 19+ 3-dose series) 1993 Tdap/Td Vaccine >11 yo (1 - Tdap) 1993 Cervical Cancer Screening 1995 Pneumococcal Vaccines >50 yo (1 of 1 - PCV) 2024 Shingles (Shingrix) (1 of 2) 2024 Annual SDOH Screening 11/24/2024 Influenza Vaccine (#1) 2025 RSV 50+ and (1 - 1 -dose 75+ series) 2049 Haemophilus Influenzae Type B (Hib) Vaccine Aged Out No longer eligible b ased on patient's age to complete this topic Hepatitis A (HepA) Vaccine Aged Out N o longer eligible based on patient's age to complete this topic Meningococcal ACWY Aged Out No longer eligible based on patient's age to complete this topic Polio (IPV) Aged Out No longer eligi ble based on patient's age to complete this topic Rotavirus (RV) Vaccine Aged Out No lo nger eligible based on patient's age to complete this topic Insurance [facility] Care Teams Security Assessor Relationship Specialty Start Date End Date Feroz Beckwith MD [address] [facility] [address] [place] [id number] PCP - General Family Medicine 12/21/21
--- OUTSIDE RECORDS SUMMARY | 2025-11-11 13:38 | XMS_ITS | Clinical Summary ---
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 Nonstaff, Referring Primary Care Provider Unavai lable Allergies No known active allergies Medications No known medications Social History Tobacco Use Types Packs/Day Years Used Date Smoking Tobacco: Never Smokeless Tobacco: Never Tobacco Cessation:Counseling Given: Not Answered Alcohol Use Standard Drinks/Week Comments Not Currently 0 (1 standard drink = 0.6 oz pur e alcohol) Comments Unknown Sex and Gender Information Value Date Recorded Sex Assigned at Not on file Legal Sex Female 11:38 AM EDT Gender Identity Not on file Sexual Orientation Not on file Last Filed Vital Signs Vital Sign Reading Time Taken Comments Blood Pressure 111/70 06/14/2023 6:23 PM EDT Pulse 67 06/14/2023 6:27 PM EDT Temperature 36.3 C (97.4 F) 06/14/2023 4:35 PM EDT Respiratory Rate 19 06/14/2023 4:51 PM EDT Oxygen Saturation 95% 06/14/2023 6:23 PM EDT Inhaled Oxygen Concentration - - Weight 108.9 kg (240 lb) 06/14/2023 4:35 PM EDT Height 162.6 cm (5' 4 ) 06/14/2023 4:35 PM EDT Body Mass Index 41.2 06/14/2023 4:35 PM EDT Plan of Treatment Health Maintenance Due Date Last Done Comments Annual Wellness Exam 1977 DTaP/TDaP/Td (1 - Tdap) 1993 Hepatitis B Vaccine (1 of 3 - 19+ 3-dose series) 1993 Cervical Cancer Screening 1995 Pap Smear 1995 HPV/Pap Cotest 2004 Breast Cancer Screening 2014 Cologuard 2019 Colon Cancer Screening 2019 Colonoscopy 2019 FIT 2019 Sigmoidoscopy 2019 Virtual Colonography 2019 Pneumococcal Vaccine 50+ (2 of 2 - PCV20 or PCV21) 2024 08/11/2014 Zoster (1 of 2) 2024 COVID-19 Vaccine (3 - 2024-2 6 season) 2025 10/04/2021, 03/28/2021 Influenza Vaccine (#1) 2025 07/27/2014 Meningococcal B Vaccine Aged Out No l onger eligible based on patient's age to complete this topic Insurance [facility] [id number] [facility] 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
--- OUTSIDE RECORDS SUMMARY | 2025-11-11 13:38 | XMS_ITS | Patient Health Record ---
Author Organization [facility] Address [address] 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 every day How many cigarettes a day do you smoke? 31 or mo re Section Notes: etoh- 2 1/2 pints daily clean date- 05/31/2023 etoh- 2 1/2 pints daily clean date- 05/31/2023 etoh- 2 1/2 pints daily clean date- 05/31/2023 etoh- 2 1/2 pints daily clean date- 05/31/2023 etoh- 2 1/2 pints daily clean date- 05/31/2023 etoh- 2 1/2 pints daily clean date- 05/31/2023 etoh- 2 1/2 pints daily clean date- 05/31/2023 etoh- 2 1/2 pints daily clean date- 05/31/2023 Problems Problem Type SNOMED Code ICD Code Onset Dates Problem Status W/U Status Risk Notes Problem Alcohol dependence (20094195) Uncomplicated alcohol dependence (F10.20) Active confirmed Problem Opioid dependence (16186556) Uncomplicated opioid dependence (F11.20) Active confirmed Plan Of Treatment No Information Insurance Providers Payer Name Payer Address Payer Phone Subscriber Number Group Number Insured Name Patient Relationship to Insured Coverage Start Date Coverage End Date [employer] [facility] [address] [address] [place] [phone] [id number] Carol Verdugo Self - patient is the insured 3 Medical (General) History Medical History History ICD Code Arthritis back/disc disease hepatitis C anxiety depression Surgical History Surgery Date(Month/Year) dilation and curettage cholecystectomy
[2025-11-11 14:55] LABS: Hematocrit 35.1 % (37.0-47.0); Hemoglobin 12.0 g/dL (12.2-16.2); Immature Granulocytes % 0.5 %; Mean Corpuscular HGB Conc 34.2 g/dL (31.8-35.4); Mean Corpuscular Hemoglobin 31.3 pg (27.0-31.2); Mean Corpuscular Volume 91.6 fl (81-99); Nucleated Red Blood Cells % 0 %; Platelet Count 335 K/mm3 (142-424); Red Blood Count 3.83 M/mm3 (4.20-5.40); Red Cell Distribution Width-SD 44.1 fL; White Blood Count 9.6 K/mm3 (4.8-10.8)
[2025-11-11 15:07] LABS: Alanine Aminotransferase 24 U/L (12-78); Albumin Level 4.1 g/dl (3.5-5.0); Albumin/Globulin Ratio 1.4 (1.1-1.8); Alkaline Phosphatase 111 U/L (38-126); Anion Gap 12.7 mEq/L (5-15); Aspartate Amino Transferase 21 U/L (14-36); Bilirubin,Total 0.5 mg/dl (0.2-1.3); Blood Urea Nitrogen 12 mg/dl (7-17); Calcium 8.9 mg/dl (8.4-10.2); Carbon Dioxide 24 mmol/L (22.0-30.0); Chloride 105 mmol/L (98-107); Cholesterol 124 mg/dl (140-200); Creatine Kinase 42 U/L (30-135); Creatinine,Serum 0.90 mg/dl (0.52-1.04); Estimated Glomerular Filt Rate 66 ml/min (>60); GFR (African American) 80 ML/MIN (>60); Globulin 2.9 g/dL (1.3-3.2); Glucose 135 mg/dl (74-100); HDL Cholesterol 45 mg/dl (40-60); Magnesium 1.7 mg/dl (1.6-2.3); Potassium 3.7 mmoL/L (3.5-5.1); Sodium 138 mmol/L (136-145); Total Protein,Serum 7.0 g/dl (6.3-8.2); Triglycerides 185 mg/dl (30-150)
[2025-11-11 15:25] LABS: 25-OH Vitamin D, Total 24.0 ng/mL (30-100)
[2025-11-11 15:37] LABS: Hemoglobin A1C 5.5 % (4.0-6.0)
[2025-11-11 15:38] LABS: Thyroid Stimulating Hormone 0.84 uIU/mL (0.465-4.68)
[2025-11-11 15:57] LABS: Vitamin B12 548 pg/mL (239-931)
[2025-11-11 17:38] LABS: Ferritin 47.7 ng/ml (11.1-264)
== END 2025-11-11 23:59 | disposition home or self-care (01) ==
PROVIDERS: PCP Nurse Practitioner Family; Visit Provider Nurse Practitioner Family
DX: Z12.31 Encounter for screening mammogram for malignant neoplasm of breast (principal); G25.81 Restless legs syndrome; E11.9 Type 2 diabetes mellitus without complications; R53.81 Other malaise; R92.323 Mammographic fibroglandular density, bilateral breasts
CPT/HCPCS: 36415; 77063; 77067; 80053; 80061; 82306; 82550; 82607; 82728; 83036; 83735; 84443; 85025